=== PATIENT | female | born 1965 | race Hispanic/Latino ===

== ENCOUNTER 2016-10-13 08:17 | Emergency (ER) | payer MEDICAID ==
--- NOTE | 2016-10-13 09:11 | ED PDOC ---
Arrival/HPI - General Historian: Patient - History of Present Illness Time/Duration: > week (2 weeks) Symptom Onset: Gradual Symptom Course: Unchanged Quality: Aching Severity Level: 4 Activities at Onset: Light Context: Walking, Home <Valerie Sharp - Last Filed: 10/13/16 10:36> <Leticia Stevenson - Last Filed: 10/24/16 07:59> - General Chief Complaint: Lower Extremity Problem/Injury Time Seen by Provider: 10/13/16 08:23 - History of Present Illness Narrative History of Present Illness (Text): 10/13/16 09:11 This is a 51Y F with PMH SVT and asthma here for L foot pain. Patient reports 2 weeks ago she was walking in her kitchen and hit her toes (3-5) on the kitchen table leg. She did have swelling at the time, but used rest, ice, and advil for the pain. The swelling decreased, but now she is having pain in her L medial foot and the anterior portion as well. She is able to bare weight, but does have pain. She denies having any other symptoms such as CP, SOB, n/v/d, numbness /tingling, ankle pain, fever or chills. 10/13/16 10:36 (Valerie Sharp) Past Medical History - Provider Review Nursing Documentation Reviewed: Yes - Infectious Disease Hx of Infectious Diseases: None - Tetanus Immunization Tetanus Immunization: Unknown - Cardiac Hx Cardiac Disorders: Yes Hx Cardiac Arrhythmia: Yes (SVT) - Pulmonary Hx Respiratory Disorders: Yes Hx Asthma: Yes - Neurological Hx Neurological Disorder: No - HEENT Hx HEENT Disorder: No - Renal Hx Renal Disorder: No - Endocrine/Metabolic Hx Endocrine Disorders: No - Hematological/Oncological Hx Blood Disorders: No - Integumentary Hx Dermatological Disorder: No - Musculoskeletal/Rheumatological Hx Musculoskeletal Disorders: No - Gastrointestinal Hx Gastrointestinal Disorders: No - Genitourinary/Gynecological Hx Genitourinary Disorders: No - Psychiatric Hx Psychophysiologic Disorder: No Hx Substance Use: No - Past Surgical History Past Surgical History: No Previous - Anesthesia Hx Anesthesia: No - Suicidal Assessment Feels Threatened In Home Enviroment: No <Valerie Sharp - Last Filed: 10/13/16 10:36> Family/Social History - Physician Review Nursing Documentation Reviewed: Yes Family/Social History: Unknown Family HX Smoking Status: Heavy Smoker > 10 Cigarettes Daily Hx Alcohol Use: No Hx Substance Use: No Hx Substance Use Treatment: No <Valerie Sharp - Last Filed: 10/13/16 10:36> Allergies/Home Meds <Valerie Sharp - Last Filed: 10/13/16 10:36> <Leticia Stevenson - Last Filed: 10/24/16 07:59> Allergies/Adverse Reactions: Allergies No Known Allergies Allergy (Verified 10/13/16 09:25) Review of Systems - Physician Review All systems were reviewed & negative as marked: Yes - Review of Systems Constitutional: Normal Respiratory: Normal. absent: SOB Cardiovascular: Normal. absent: Chest Pain Gastrointestinal: Normal. absent: Abdominal Pain Musculoskeletal: Other (medial L foot pain). absent: Arthralgias, Myalgias Skin: Normal. absent: Rash, Skin Lesions, Laceration Neurological: absent: Headache, Dizziness <Valerie Sharp - Last Filed: 10/13/16 10:36> Physical Exam Vital Signs Reviewed: Yes - Systems Exam Head: Present: Atraumatic, Normocephalic Mouth: Present: Moist Mucous Membranes Neck: Present: Normal Range of Motion Respiratory/Chest: Present: Clear to Auscultation, Good Air Exchange. No: Respiratory Distress, Accessory Muscle Use Cardiovascular: Present: Regular Rate and Rhythm, Normal S1, S2. No: Murmurs Abdomen: Present: Normal Bowel Sounds. No: Tenderness, Distention, Peritoneal Signs Back: Present: Normal Inspection Upper Extremity: Present: Normal Inspection. No: Cyanosis, Edema Lower Extremity: Present: Normal Inspection, Normal ROM, Tenderness (to medial and interior aspect of fore foot ). No: Edema, Swelling Neurological: Present: GCS=15, CN II-XII Intact, Speech Normal Skin: Present: Warm, Dry, Normal Color. No: Rashes Psychiatric: Present: Alert, Oriented x 3, Normal Insight, Normal Concentration <Valerie Sharp - Last Filed: 10/13/16 10:36> Medical Decision Making Re-evaluation Time: 10:27 Reassessment Condition: Unchanged - RAD Interpretation [employer]: ED Physician <Valerie Sharp - Last Filed: 10/13/16 10:36> <Leticia Stevenson - Last Filed: 10/24/16 07:59> ED Course and Treatment: 10/13/16 09:19 Impression: This is a 51Y F with PMH SVT and asthma here for L foot pain s/p mechanical injury. Differential Diagnosis included but are not limited to: sprain vs. fracture Plan: -- L foot XR -- Tylenol -- Reassess and disposition Prior Visits: Notes and results from previous visits were reviewed. 10/13/16 10:25 Progress Note: Prelim Foot XR negative. Patient was able to walk to XR. Patient planned to be d /c home with TO wrap and continue to take Motrin as needed. She can follow up with Ortho and PMD if pain continues. Re-evaluation: Discussed results and plan with patient. Patient understands results and is agreeable with plan. All questions answered. (Valerie Sharp) Patient Seen With Resident: In agreement with resident note which contains more details about the patient. Patient was seen and evaluated with resident. Came up with plan and treatment together. (Leticia Stevenson) - RAD Interpretation Narrative RAD Interpretations (Text): 10/13/16 10:27 Foot XR negative for fracture. (Valerie Sharp) Radiology Orders: 10/13/16 09:06 FOOT LEFT 3 VIEWS ROUTINE [RAD] Stat - Medication Orders Current Medication Orders: Discontinued Medications Acetaminophen (Tylenol 325mg Tab) 650 mg PO STAT STA Stop: 10/13/16 09:06 Last Admin: 10/13/16 09:25 Dose: 650 mg Disposition/Present on Arrival - Present on Arrival Any Indicators Present on Arrival: No History of DVT/PE: No History of Uncontrolled Diabetes: No Urinary Catheter: No History Surgical Site Infection Following: None - Disposition Have Diagnosis and Disposition been Completed?: Yes Disposition Time: 10:29 Patient Plan: Discharge <Valerie Sharp - Last Filed: 10/13/16 10:36> - Present on Arrival Any Indicators Present on Arrival: No History of DVT/PE: No History of Uncontrolled Diabetes: No Urinary Catheter: No <Leticia Stevenson - Last Filed: 10/24/16 07:59> - Disposition Diagnosis: Strain of foot, left Disposition: HOME/ ROUTINE Condition: GOOD Discharge Instructions (ExitCare): Foot Sprain (ED) Print Language: AMHARIC Additional Instructions: Ms. Araya, thank you for letting us take care of you today. Your provider was Dr. Sharp. You were treated for L foot strain. The emergency medical care you received today was directed at your acute symptoms. It may take several days for your symptoms to resolve. Return to the Emergency Department if your symptoms worsen, do not improve, or if you have any other problems. Please contact your doctor or call one of the physicians/clinics you have been referred to that are listed on the Patient Visit Information form that is included in your discharge packet. Bring any paperwork you were given at discharge with you along with any medications you are taking to your follow up visit. Our treatment cannot replace ongoing medical care by a primary care provider (PCP) outside of the emergency department. Thank you for allowing the [facility] team to be part of your care today. If you had an X-Ray or CT scan: A Radiologist will review the ED reading if any change in treatment is needed we will contact you. Please take Motrin as needed for pain. Referrals: Aniceto Walls MD [Primary Care Provider] - Follow up with primary Jerry Gaines MD [Staff Provider] - Follow up with primary Forms: WORK NOTE
[2016-10-13 09:20] VITALS: BMI 33.0
[2016-10-13 09:25] VITALS: BP 117/61; PULSE 82; RESP 18; TEMP 98.1; O2SAT 95
--- NOTE | 2016-10-13 11:01 | RAD ---
PROCEDURE: Left Foot Radiographs. HISTORY: trauma COMPARISON: None. FINDINGS: BONES: Normal. No fracture. JOINTS: Normal. SOFT TISSUES: Normal. OTHER FINDINGS: None. IMPRESSION: Normal left foot radiographs.
== END 2016-10-13 11:00 | disposition home or self-care (01) ==
LOC: ED 08:17
DX: S96.912A Strain of unspecified muscle and tendon at ankle and foot level, left foot, initial encounter (principal); W22.03XA Walked into furniture, initial encounter; Y93.89 Activity, other specified; Y92.000 Kitchen of unspecified non-institutional (private) residence as the place of occurrence of the external cause